=== PATIENT | male | born 2000 | race Caucasian/White ===

== ENCOUNTER 2021-07-14 22:20 | Emergency (ER) | payer MEDICAID, OTHER ==
[2021-07-14 23:38] LABS: ESTIMATED GFR > 60 mL/min (>60)
[2021-07-15] MEDS ORDERED: Ondansetron 4 MG/2 ML SDV IVPUSH ONE (00:38)
[2021-07-15] MEDS ORDERED: Sodium Chloride 0.9% 500 ML IV ONE (00:47)
[2021-07-15] MEDS ORDERED: Morphine 2 MG/ML SYRINGE IVPUSH ONE (01:08)
[2021-07-15] MEDS ORDERED: Ondansetron 4 MG Tab.DIS PO ONE (02:14)
== END 2021-07-15 02:26 | disposition home or self-care (01) ==
LOC: JD.ED 22:20
DX: K52.9 Noninfective gastroenteritis and colitis, unspecified (principal)
CPT/HCPCS: 36415; 74177; 80053; 81003; 83690; 85025; 96361; 96374; 96375; 99284; A9270; J2270; J2405; J7030